=== PATIENT | female | born 1955 | race Caucasian/White ===

== ENCOUNTER → 2022-09-08 | Outpatient (CLI) | payer MEDICARE ==
--- NOTE | 2022-09-08 10:59 | Diagnostic Imaging Report ---
CLINICAL INDICATION: Patient has cervical spine pain. No known injury. EXAM: MRI of the cervical spine performed without IV contrast. Sequences include sagittal T2, sagittal T1, sagittal T2 fat-sat, and axial T2. COMPARISON: None. FINDINGS: Limited visualization of posterior fossa is unremarkable. There is localized encroachment upon the cervical spinal cord seen at the C3-C4, C4-C5, and C7-T1 levels due to disk disease. There is no abnormal signal involving the cervical cord. There is no acute cervical spine fracture. There are Modic type I degenerative signal changes involving the C3-C4, C6-C7 and T1-T2 levels. There is Modic type II degenerative signal changes involving the C4-C5, C5-C6, C6-C7, and T1-T2 levels. There are hypertrophic spurs and facet arthropathy throughout cervical spine. There is no significant paraspinal soft tissue abnormality. C1-C2, there are degenerative spurs involving the atlantoodontoid interval anterior. There is no significant central canal narrowing. There is hypertrophic right C1-C2 lateral mass spurs extending medially and laterally. There is moderate right neural foramen narrowing. There is no significant left neural foramen narrowing. C2-C3: There is minimal ligamentum flavum buckling. There is mild left facet arthropathy. There is no significant central canal or neural foramen narrowing. C3-C4: There is grade 1 anterolisthesis of C3 on C4. There is diffuse disk bulge. There is moderate left facet arthropathy and mild right facet arthropathy. There is mild right neural foramen narrowing. There is severe left neural foramen narrowing. There is moderate to severe central canal stenosis. C4-C5: There is diffuse disk bulge with moderate to severe loss of disk space height. There is severe left facet arthropathy/hypertrophy and mild right facet arthropathy. There is moderate to severe central canal stenosis. There is severe bilateral neural foramen narrowing. C5-C6: There is grade 1 anterolisthesis of C5 on C6. There is diffuse disk bulge with moderate to severe loss of disk space height. There are bilateral uncinate spurs. There is moderate central canal stenosis. There is moderate to severe left neural foramen narrowing and no significant right neural foramen narrowing. C6-C7: There is a diffuse disk bulge with mild loss of disk space height. There are bilateral uncinate spurs. There is mild bilateral facet arthropathy. There is mild right neural foramen narrowing and severe left neural foramen narrowing. There is mild to moderate central canal stenosis. C7-T1: There is grade 2 anterolisthesis C7 on T1. There is a diffuse disk bulge with uncovering of the posterior aspect of disc. There is severe loss of disk space height. There is bilateral severe facet arthropathy. There is severe central canal stenosis and severe bilateral neural foramen narrowing. T1-T2: There is diffuse disk bulge with severe loss of disk space height and hypertrophic posterior disk spurs and bilateral uncinate spurs. There is severe bilateral neural foramen narrowing and mild to moderate central canal stenosis. 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 2: There are multilevel areas of significant encroachment upon the cervical cord most pronounced at the C6-C7 level. Dictated by: Dictated on workstation # [id number]
== END ==
LOC: RAD 10:15
PROVIDERS: ATTEND Family Medicine
DX: M50.121 Cervical disc disorder at C4-C5 level with radiculopathy (principal); M50.122 Cervical disc disorder at C5-C6 level with radiculopathy; M50.123 Cervical disc disorder at C6-C7 level with radiculopathy; M48.02 Spinal stenosis, cervical region
CPT/HCPCS: 72141

== ENCOUNTER 2023-02-09 05:39 | Outpatient (CLI) | payer MEDICARE ==
[~2023-02-09] VITALS: Ht 152.4 cm; Wt 67.4 kg
[2023-02-09] MEDS ORDERED: ATOR10TA66 PO (09:51)
[2023-02-09] MEDS ORDERED: LISI30TA5 PO (09:51)
[2023-02-09] MEDS ORDERED: DICL75TA2 PO (09:51)
== END 2023-02-09 10:01 | disposition home or self-care (01) ==
LOC: PREOP 05:39
PROVIDERS: ATTEND Surgery
DX: Z01.818 Encounter for other preprocedural examination (principal)

== ENCOUNTER 2023-02-16 12:03 | Day surgery (SDC) | payer MEDICARE ==
[~2023-02-16] VITALS: Ht 152.4 cm; Wt 67.4 kg
[~2023-02-16 12:03] MED LIST: ATOR10TA66 PO; DICL75TA2 PO; LISI30TA5 PO
--- NOTE | 2023-02-16 12:12 | Progress Note-Pre Operative ---
Pre-Operative Progress Note Date of Available H&P: Feb 16, 2023 Date H&P Reviewed: Feb 16, 2023 Time H&P Reviewed: 12:00 History & Physical: No changes noted Pre-Operative Diagnosis: screening o SHARDA ANDERSON MD Feb 16, 2023 12:12
--- NOTE | 2023-02-16 12:13 | Discharge Inst-Surgical ---
D/C Lap Instructions-JUSTIN Follow Up Activity as tolerated High Fiber Diet 25g or more per day Avoid Alcohol, Caffeine, Spicy [place] and Acid foods. Drink 64 fluid oz or more of fluids per day. Symptoms to Report: Fever over 101 degree F, Nausea/Vomiting If any problems/questions: Contact your physician or go to Emergency Room SHARDA ANDERSON MD Feb 16, 2023 12:13
[2023-02-16] MEDS ORDERED: LACTATED RINGERS 1,000 ML IV STA (12:14)
[2023-02-16] MEDS ORDERED: LIDOCAINE JELLY 2% 6 ML SYRINGE MM PRN (12:15)
[2023-02-16] MEDS ORDERED: ONDANSETRON 4 MG/2 ML (SDV) Z0FRAN IVP PRN (12:15)
[2023-02-16] MEDS ORDERED: ONDANSETRON 4 MG (ZOFRAN) ORAL DISSOLVE TAB PO PRN (12:15)
[2023-02-16 12:20] VITALS: BP 168/81
[2023-02-16] MEDS ORDERED: LACTATED RINGERS 1,000 ML IV ONE (12:25)
[2023-02-16] MEDS ORDERED: LIDOCAINE JELLY 2% 6 ML SYRINGE ONE ×2 (12:42→14:20)
[2023-02-16] MEDS ORDERED: PROPOFOL INJECTION 50 ML IV ONE (13:03)
[2023-02-16] MEDS ORDERED: MIDAZOLAM 2 MG/2 ML (VERSED) VIAL ONE (13:03)
[2023-02-16 13:30] VITALS: BP 129/57
[2023-02-16 13:35] VITALS: BP 136/64
--- NOTE | 2023-02-16 13:47 | Progress Note-Post Operative ---
Post-Operative Progess Note Surgeon (s)/Solar Sales Advisor (s) Surgeon SHARDA ANDERSON MD Solar Sales Advisor: none Pre-Operative Diagnosis screening colo Post-Operative Diagnosis chronic stage 2 ext and int hemorroids, mild sigmoid diverticulosis. Procedure & Operative Findings Date of Procedure 02/16/23 Procedure Performed/Findings colonoscopy Anesthesia Type mac Estimated Blood Loss Estimated blood loss (mL): minimal Specimens/Packing Specimens Removed none SHARDA ANDERSON MD Feb 16, 2023 13:47
[2023-02-16 13:50] VITALS: BP 148/77
--- NOTE | 2023-02-16 14:14 | Anesthesia-General Post-Op ---
MAC Patient Condition Mental Status/LOC: Same as Preop Cardiovascular: Satisfactory Nausea/Vomiting: Absent Respiratory: Satisfactory Pain: Controlled Complications: Absent Post Op Complications Complications None Follow Up Care/Instructions Patient Instructions None needed. Anesthesiology Discharge Order Discharge Order Patient is doing well, no complaints, stable vital signs, no apparent adverse anesthesia problems. No complications reported per nursing. JOHN GUTHRIE INTERIOR PAINTER Feb 16, 2023 14:14
--- NOTE | 2023-02-16 21:03 | OPERATIVE REPORT ---
DATE OF SERVICE: 02/16/2023 ATTENDING PRIMARY CARE PHYSICIAN: Dr. Dao Mohamud. PREOPERATIVE DIAGNOSIS: Screening colonoscopy. POSTOPERATIVE DIAGNOSES: Mild chronic stage II external and internal hemorrhoids, mild sigmoid diverticulosis. PROCEDURE: Colonoscopy. SURGEON: Sharda Anderson MD ANESTHESIA: Monitored anesthesia care. ESTIMATED BLOOD LOSS: Minimal. FINDINGS: Mild chronic stage II external and internal hemorrhoids, mild sigmoid diverticulosis. DISPOSITION: The patient tolerated the procedure well. INDICATIONS: The patient is a 67-year-old female referred over to us for screening colonoscopy. She has not had a colonoscopy up to this point in her life. She states that she is otherwise doing well, does not report any issues with abdominal pain as well as no significant constipation or diarrhea. She also does not report any red blood per rectum, nor any dark tarry stools and does not know of any family history of colon cancer. DESCRIPTION OF PROCEDURE: The patient was brought to the endoscopy suite and laid in the left lateral decubitus position. After adequate IV pain and sedative medications and monitored anesthesia care, a digital rectal examination was performed. There was a mild chronic stage II, external and internal hemorrhoids and a slight weakening of the pelvic floor. Normal sphincter tone was felt and there were no palpable masses. The endoscope was then intubated into the anus, rectum gently insufflated. The endoscope was then advanced to the valves of Ramirez of the rectum with no polyps or any neoplasms identified. Through the sigmoid colon, mild sigmoid diverticulosis identified. The endoscope was then advanced to the remainder of the descending, transverse and ascending colon to the cecum, which were normal. No polyps or any neoplasms identified. The endoscope was then slowly withdrawn while taking a second look and suctioning of residual air with no additional findings. The patient tolerated the procedure well. We will recommend continued medical management with a high-fiber diet with a fiber supplement, which should equal or exceed 25 grams daily as well as significant amounts of water to promote soft consistency stools on a daily basis. If she is asymptomatic, she does not need another colonoscopy for another 10 years. Job ID: [id number] DocumentID: [id number] Dictated Date: 02/16/2023 13:33:52 Concrete Batching Plant Operator Date: 02/16/2023 21:02:00 Dictated By: SHARDA ANDERSON MD
== END 2023-02-16 14:10 | disposition home or self-care (01) ==
LOC: ENDO 12:03
PROVIDERS: ATTEND Surgery
DX: Z12.11 Encounter for screening for malignant neoplasm of colon (principal); K57.30 Diverticulosis of large intestine without perforation or abscess without bleeding; K64.1 Second degree hemorrhoids; K64.4 Residual hemorrhoidal skin tags